=== PATIENT | female | born 1970 | race Two or more races ===

== ENCOUNTER 2020-01-04 10:47 | Emergency (ER) | payer BC ==
[~2020-01-04] VITALS: Ht 170.2 cm; Wt 82.2 kg
[2020-01-04] MEDS ORDERED: HYDROcodone/APAP 5/325 TABLET PO ONE ×2 (11:30→13:00)
[2020-01-04] MEDS ORDERED: KETOROLAC 30 MG/1 ML IM ONE (11:30)
[2020-01-04] MEDS ORDERED: ONDANSETRON ODT 4 MG PO ONE (11:30)
[2020-01-04] MEDS ORDERED: CYCLOBENZAPRINE 10 MG TABLET PO ONE (11:30)
[2020-01-04] MEDS ORDERED: CYCLOBENZAPRINE 10 MG TABLET ONE (11:40)
[2020-01-04] MEDS ORDERED: ONDANSETRON ODT 4 MG ONE (11:40)
[2020-01-04] MEDS ORDERED: KETOROLAC 30 MG/1 ML ONE (11:40)
[2020-01-04] MEDS ORDERED: HYDROcodone/APAP 5/325 TABLET ONE ×2 (11:41→13:19)
[2020-01-04 11:42] LABS: BASOPHILS # (AUTO) 0.06 x10^3/uL (0-0.1); BASOPHILS % (AUTO) 1 % (0-1); EOSINOPHILS # (AUTO) 0.28 x10^3/uL (0-0.4); EOSINOPHILS % (AUTO) 4 % (1-7); LYMPHOCYTES # (AUTO) 2.05 x10^3/uL (1-3.4); LYMPHOCYTES % (AUTO) 28 % (22-44); MD NO; MEAN CORPUSCULAR HEMOGLOBIN 28.5 pg (27.0-34.8); MEAN CORPUSCULAR HGB CONC 32.6 g/dL (32.4-35.8); MEAN CORPUSCULAR VOLUME 87.2 fL (80-100); MEAN PLATELET VOLUME 8.5 fL (7.4-10.4); MONOCYTES # (AUTO) 0.35 x10^3/uL (0.2-0.8); MONOCYTES % (AUTO) 5 % (2-9); NEUTROPHILS # (AUTO) 4.69 x10^3/uL (1.8-6.8); NEUTROPHILS % (AUTO) 63 % (42-75); PLATELET COUNT 217 x10^3/uL (130-400); RED BLOOD COUNT 4.29 x10^6/uL (3.82-5.3); RED CELL DISTRIBUTION WIDTH 13.8 % (9.6-15.2)
[2020-01-04 11:51] LABS: ANION GAP 6 mmol/L (5-15); CALCIUM 8.6 mg/dL (8.5-10.1); CHLORIDE 110 mmol/L (98-107); CREATININE 0.82 mg/dL (0.55-1.02)
--- NOTE | 2020-01-04 11:53 | NUR ---
PT PRESENTS TO ED WITH C/O MIDLINE LOWER BACK PAIN ONSET THIS AM WHEN STANDING UP FROM SEATED POSITION AT WORK. PT DENIES INJURY/TRAUMA. PT DENIES N/T. PT DENIES BOWEL/BLADDER DYSFUNCTION. PT A&O, RESPS EVEN AND UNLABORED. BP AND SPO2 MONITORS IN PLACE. CALL LIGHT IN REACH. PT MEDICATED PER EMAR, TOLERATED WELL, US TECH AT BEDSIDE.
[2020-01-04 13:22] VITALS: BP 126/47
== END 2020-01-04 13:47 | disposition home or self-care (01) ==
LOC: ED 13:08
DX: S39.012A Strain of muscle, fascia and tendon of lower back, initial encounter (principal); X58.XXXA Exposure to other specified factors, initial encounter; Y93.89 Activity, other specified; Y92.89 Other specified places as the place of occurrence of the external cause; Y99.8 Other external cause status
CPT/HCPCS: 36415; 72110; 76882; 80048; 85025; 96372; 99285; J1885; Q0162